=== PATIENT | female | born 2000 | race Caucasian/White ===

== ENCOUNTER 2018-06-19 15:15 | Emergency (ER) | payer MEDICAID, OTHER ==
[~2018-06-19] VITALS: Ht 165.1 cm; Wt 50.0 kg
[2018-06-19 17:07] LABS: BASOPHILS % 0.4 % (0.0-2.0); CHLORIDE 107 mEq/L (98-107); HEMATOCRIT. 40.7 % (36.0-48.0); HEMOGLOBIN. 13.3 g/dL (12.0-16.0); LYMPHOCYTES % 11.9 % (20.0-50.0); MEAN CORPUSCULAR HEMOGLOBIN 29.5 pg (28.0-32.0); MEAN CORPUSCULAR VOLUME 90.1 fL (81.0-99.0); MEAN PLATELET VOLUME 10.6 fl (7.4-10.4); MONOCYTES % 4.7 % (2.0-8.0); PLATELET 164 x1000/uL (130-400); RED BLOOD CELL COUNT 4.51 mill/uL (4.2-5.4); RED CELL DISTRIBUTION WIDTH 12.8 % (11.6-14.6)
[2018-06-19 17:35] VITALS: BP 105/66
== END 2018-06-19 18:23 | disposition home or self-care (01) ==
LOC: ER 16:02
DX: R55 Syncope and collapse (principal); N94.6 Dysmenorrhea, unspecified
CPT/HCPCS: 36415; 80048; 81025; 93005; 99285

== ENCOUNTER 2020-01-10 16:43 | Emergency (ER) | payer MEDICAID ==
[~2020-01-10] VITALS: Ht 167.6 cm; Wt 65.0 kg
[2020-01-10 16:59] VITALS: BP 113/67
[2020-01-10] MEDS ORDERED: IBUPROFEN 600MG TABLET PO ONE (17:15)
== END 2020-01-10 18:57 | disposition home or self-care (01) ==
LOC: ER 16:43
DX: S89.92XA Unspecified injury of left lower leg, initial encounter (principal); J45.909 Unspecified asthma, uncomplicated; W01.0XXA Fall on same level from slipping, tripping and stumbling without subsequent striking against object, initial encounter; Y93.01 Activity, walking, marching and hiking; Y92.89 Other specified places as the place of occurrence of the external cause; Y99.8 Other external cause status
CPT/HCPCS: 73562; 73590; 81025; 99284; L1830

== ENCOUNTER 2020-09-14 16:37 | Emergency (ER) | payer MEDICAID, OTHER ==
[~2020-09-14] VITALS: Ht 165.1 cm; Wt 59.0 kg
[2020-09-14 16:38] VITALS: BP 111/80
== END 2020-09-14 16:50 | disposition left against medical advice (07) ==
LOC: ER 16:37
DX: R53.1 Weakness (principal)
CPT/HCPCS: 93005; 99283

== ENCOUNTER 2022-08-08 12:47 | Emergency (ER) | payer MEDICAID ==
[~2022-08-08] VITALS: Ht 165.1 cm; Wt 80.0 kg
[2022-08-08] MEDS ORDERED: ONDANSETRON HCL 4MG TABLET PO ONE (14:15)
[2022-08-08] MEDS ORDERED: IBUPROFEN 400MG TABLET PO ONE (14:15)
[2022-08-08 14:25] LABS: BASOPHILS % 0.2 % (0.0-2.0); HEMATOCRIT. 40.4 % (36.0-48.0); HEMOGLOBIN. 13.8 g/dL (12.0-16.0); LYMPHOCYTES % 8.4 % (20.0-50.0); MEAN PLATELET VOLUME 10.7 fl (7.4-10.4); MONOCYTES % 7.5 % (2.0-8.0); NEUTROPHILS % 83.9 % (40.0-76.0); PLATELET 173 x1000/uL (130-400); RED BLOOD CELL COUNT 4.59 mill/uL (4.2-5.4); RED CELL DISTRIBUTION WIDTH 12.8 % (11.6-14.6)
[2022-08-08 14:35] LABS: CHLORIDE 106 mEq/L (98-107)
[2022-08-08 14:43] LABS: HCG SCREEN NEGATIVE
[2022-08-08 14:58] VITALS: BP 106/69
[2022-08-08 15:25] LABS: CLARITY URINE CLEAR (CLEAR); COLOR URINE YELLOW (YELLOW); KETONES URINE 3+ (NEGATIVE); LEUKOCYTE ESTERASE URINE NEGATIVE (NEGATIVE); NITRITE URINE NEGATIVE (NEGATIVE); OCCULT BLOOD URINE NEGATIVE (NEGATIVE); PH URINE 5.5 (4.5-8.0); PROTEIN URINE TRACE (NEGATIVE)
== END 2022-08-08 16:12 | disposition home or self-care (01) ==
LOC: ER 12:47
DX: R10.9 Unspecified abdominal pain (principal); J45.909 Unspecified asthma, uncomplicated
CPT/HCPCS: 36415; 80053; 81003; 81025; 84703; 85025; 99283; Q0162